=== PATIENT | female | born 2005 | race African-American/Black ===

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

== ENCOUNTER 2023-11-29 18:40 | Emergency (ER) | payer MEDICAID, SELFPAY ==
[2023-11-29 18:41] VITALS: BP 106/61; PULSE 91; RESP 14; TEMP 37.4; O2SAT 99; BMI 27.8
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
--- NOTE | 2023-11-29 19:06 | EX.ED.DYSGE1 ---
HPI History of Present Illness Chief Complaint: Cough Informant: patient and parent Narrative Narrative: Patient presents with cough and some chest discomfort. Patient is 24 weeks . She had a miscarriage at 5 weeks about a year ago. She has not had problems with this . Only medicine is multivitamin at this time. About 5 days ago she started to not feel well. It started with some myalgias. Subjective fever and diarrhea. She has not had nausea and vomiting but she states her appetite is just very down and she is just not interested in eating but she is able to eat and drink. She has had some nasal congestion and runny nose. She then developed a cough. No sputum production. She has been coughing more firmly for the last couple days. She states if she takes a big breath when she breathes out she hears a little bit of wheeze and it makes her cough. She has developed some soreness in her anterior sternum mostly with coughing. No hemoptysis. No family or personal history of DVT or PE. No leg pain or swelling. No history of asthma. No recent travel. [facility] Medical History (Updated 11/29/23 @ 21:[address] Kameron Obregon MD) Anxiety Bipolar disorder Depression Former smoker GERD (gastroesophageal reflux disease) Substance abuse Home Medications aspirin 81 mg tablet,delayed release 81 mg PO DAILY 11/29/23 [History Last Taken Unknown] vitamins no.144-folic acid 400 mcg chewable tablet () 2 tab PO DAILY 11/29/23 [History Last Taken Unknown] Allergy/AdvReac Type Severity Reaction Status Date / Time No Known Allergies Allergy Verified 11/29/23 18:41 Social History Smoking Status: Former smoker ROS ROS ED ROS Narrative A complete review of systems was performed and is negative except as documented in the history of present illness. Some specific details below. Constitutional: Subjective fevers. Not measured. Minimal myalgias. See history of present illness EYE: No eye pain or visual complaints. ENT: No sore throat. But she does have some nasal congestion and runny nose CV: See history of present illness. Respiratory: See history of present illness. GI: No abdominal pain. Diarrhea which is improving now. No nausea vomiting but her appetite is down. : No frequency dysuria or hematuria. Musculoskeletal: No recent trauma. No pains. No swelling. Skin: No rash. Nondiaphoretic. Neuro: No weakness or numbness. Endocrine: No polyuria or polydipsia. EXAM Physical Exam Narrative Exam Narrative: CONSTITUTIONAL: Patient is nontoxic in appearance. The patient looks comfortable. Work of breathing looks normal. HEENT: No notable trauma. Mucous membranes moist. Her nose a little bit red likely from blowing. Mild nasal congestion. But no sinus tenderness. No exudate. EYES: No conjunctival injection. No proptosis. NECK:No JVD. No stridor. Voice is normal. CARDIOVASCULAR: Regular rate. Not tachycardic. Regular rhythm. No notable murmur. No JVD. RESPIRATORY: No respiratory distress. Breathing is unlabored. No wheezes with normal breathing. But when she takes a deep breath she will have a little bit of wheeze with expiration. It is very mild. It will also sometimes induce a cough. But no notable pain and no sensation of inspiration with a deep breath. No rhonchi. No rales. She does have tenderness in the lower to mid sternum in the area where she has discomfort with coughing. This is reproducible. GASTROINTESTINAL: Gravid but not tender. GENITOURINARY: No tenderness over the bladder. No CVA tenderness. MUSCULOSKELETAL: Atraumatic. No peripheral edema. No asymmetry or cord. NEUROLOGICAL: Patient is alert and appropriate. No focal deficit noted. SKIN: No noted rashes. No diaphoresis. PSYCHIATRIC: Patient is calm. Mood is appropriate. Const Vital Signs: 11/29/23 18:41 11/29/23 19:15 11/29/23 20:14 Temperature 99.3 F H Temperature Source Temporal Pulse Rate 91 92 Respiratory Rate 14 14 Respiratory Effort Normal Respiratory Depth Normal Respiratory Pattern Normal Blood Pressure 106/61 Blood Pressure Mean 76 Pulse Ox 99 Oxygen Delivery Method Room Air Room Air 11/29/23 20:39 Temperature Temperature Source Pulse Rate 78 Respiratory Rate 16 Respiratory Effort Respiratory Depth Respiratory Pattern Blood Pressure 92/45 L Blood Pressure Mean 60 Pulse Ox 97 Oxygen Delivery Method Room Air MDM MDM MDM Narrative Medical decision making narrative: Patient was likely referred in here due to concern for PE from her symptoms. At this patient clearly has viral type syndrome. She started with malaise subjective fevers diarrhea progressed to runny nose congestion and a cough. I do not think it would be appropriate to do a CTA. I think that would be putting her in the child at much more risk than there is potential benefit. I will give her a breathing treatment to see if this helps with forced expiration. Because you can induce a little bit of wheezing I will check for viral studies. She does not look ill like she has a virus but she does have symptoms consistent with that. I did explain that negative viral studies does not rule out the disease it just makes it less likely. Patient is positive for flu A. I checked her with her she states the breathing treatment really did not help her. Since it did not help I do not think we need to prescribe it. She will use rest Tylenol and follow-up. We discussed expected duration and reasons to return. Discharge Plan Triage Chief Complaint: Cough ED Provider: Kameron Obregon Dx/Rx/DC Orders Clinical Impression: Influenza A Instructions: ED Influenza (Adult) Prescriptions: No Action 400 mcg tablet,chewable 2 tab PO DAILY aspirin 81 mg tablet,delayed release (DR/EC) 81 mg PO DAILY Primary Care Provider: Kristina He Referrals: Kristina He MD [Primary Care Provider] - 3-5 Days if not improving Disposition Disposition: Home, Self Care
[2023-11-29 19:15] VITALS: PULSE 92; RESP 14
[2023-11-29] MEDS: Albuterol 2.5 MG/3 ML VIAL.NEB. INHALATION (19:15)
[2023-11-29 20:14] VITALS: O2SAT 97
[2023-11-29 20:39] VITALS: BP 92/45; PULSE 78; RESP 16; O2SAT 97
[2023-11-29 21:19] VITALS: BP 98/61; PULSE 79; RESP 16; O2SAT 97
== END 2023-11-29 21:21 | disposition home or self-care (01) ==
PROVIDERS: Emergency Provider Emergency Medicine; PCP Pediatrics; Visit Provider Emergency Medicine
DX: J10.1 Influenza due to other identified influenza virus with other respiratory manifestations (principal); O99.512 Diseases of the respiratory system complicating pregnancy, second trimester; Z3A.24 24 weeks gestation of pregnancy; Z87.891 Personal history of nicotine dependence
CPT/HCPCS: 87631; 94640; 99282

== ENCOUNTER 2024-02-11 19:05 | Outpatient (CLI) | payer MEDICAID, SELFPAY ==
[2024-02-11 19:35] VITALS: BMI 29.2
[2024-02-11 19:41] VITALS: BP 111/67; PULSE 93; RESP 16; TEMP 36.8; O2SAT 97
[2024-02-11] MEDS: Lactated Ringers 500 ML IV.SOLN. 1000 ML IV (20:10)
[2024-02-11 20:25] LABS: Absolute Lymphocyte Count 1.72 X10^3/uL (0.83-4.51); Basophil# 0.04 X10^3/uL; Basophil% 0.5 % (0-1); Eosinophil# 0.11 X10^3/uL; Eosinophils% 1.2 % (0-5); Hemoglobin 10.5 g/dL (12.0-15.0); Lymphocyte # 1.72 X10^3/ul (0.83-4.51); Lymphocyte % 19.5 % (19-41); Mean Corp Hgb Conc 33.9 g/dL (32-36); Mean Corpuscular Hgb 30.2 pg (27.0-32.0); Mean Corpuscular Volume 89.1 fL (81-99); Mean Platelet Vol. 10.3 fl (6.2-12.0); Monocyte% 10.2 % (0-10); NRBC Flagged by Analyzer 0 % (0-5); Neutrophil # 6.01 X10^3/uL (2.7-7.7); Neutrophil % 67.9 % (47-70); Platelet Count 239 K/mm3 (150-450); RBC Distribution Width CV 12.7 % (11.6-14.6); Red Blood Count 3.48 M/mm3 (4.2-5.4); White Blood Count 8.8 K/mm3 (4.4-11.0)
[2024-02-11 20:47] LABS: Prothrombin Time (Protime)PT. 13.6 SECONDS (11.7-14.9)
[2024-02-11 20:48] LABS: Fibrinogen 426 mg/dl (203-444); Partial Thromboplast Time 25.5 Seconds (24.1-36.2)
[2024-02-11] MEDS: Lactated Ringers 500 ML IV.SOLN. IV (22:11)
[2024-02-11 22:12] VITALS: PULSE 99; RESP 16; TEMP 36.6; O2SAT 97
[2024-02-11 22:13] VITALS: BP 116/56; PULSE 86
[2024-02-11 22:56] VITALS: BP 110/56; PULSE 80; PULSE 81; RESP 16; TEMP 36.6; O2SAT 98
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
== END 2024-02-11 23:25 | disposition home or self-care (01) ==
LOC: WPOUT 19:08 → WP 19:10
PROVIDERS: PCP Pediatrics; Referring Provider Obstetrics & Gynecology; Visit Provider Obstetrics & Gynecology
DX: O47.03 False labor before 37 completed weeks of gestation, third trimester (principal); O99.613 Diseases of the digestive system complicating pregnancy, third trimester; K21.9 Gastro-esophageal reflux disease without esophagitis; Z3A.37 37 weeks gestation of pregnancy; Z79.899 Other long term (current) drug therapy; V18.9XXA Unspecified pedal cyclist injured in noncollision transport accident in traffic accident, initial encounter
CPT/HCPCS: 36415; 59025; 59050; 76815; 85025; 85384; 85610; 85730; 86850; 86900; 86901; 99221; J7120; G0378

== ENCOUNTER 2024-03-18 08:21 | Inpatient (IN) | payer MEDICAID, SELFPAY ==
[2024-03-18] VITALS (97 sets, daily range): BP systolic 89–129; BP diastolic 40–81; PULSE 60–103; RESP 16–24; TEMP 35.9–36.6; O2SAT 91–100; BMI 30.2
[2024-03-18] MEDS: Lactated Ringers 1,000 ML 999 ML IV (09:05)
[2024-03-18 09:17] LABS: Amphetamine Urine VISTA NEGATIVE (<1000 ng/mL); Barbiturate Urine VISTA NEGATIVE (< 200 ng/mL); Benzodiazepine Urine VISTA NEGATIVE (< 200 ng/mL); Cocaine Urine VISTA NEGATIVE (< 300 ng/mL); Ecstacy Urine VISTA NEGATIVE (< 500 ng/mL); Methadone Urine VISTA NEGATIVE (< 300 ng/mL); PCP Urine VISTA NEGATIVE (< 25 ng/mL); THC Urine VISTA NEGATIVE (< 50 ng/mL); Vista UDS pH Range 7
[2024-03-18 09:28] LABS: ROM Internal Control Test YES-OK TO RESULT pt. (Internal QC); ROM Patient Test Negative (Negative); Record Kit Lot#, ROM+ K1866
[2024-03-18] MEDS: LACTATED RINGERS 500 ML 999 ML IV (09:30)
[2024-03-18 09:31] LABS: Absolute Lymphocyte Count 1.05 X10^3/uL (0.83-4.51); Absolute Neutrophil Count 9.6 X10^3/uL (2.0-7.7); Basophil# 0.03 X10^3/uL; Basophil% 0.3 % (0-1); Eosinophil# 0.04 X10^3/uL; Eosinophils% 0.3 % (0-5); Hematocrit 37.8 % (37-47); Hemoglobin 12.8 g/dL (12.0-15.0); Lymphocyte # 1.05 X10^3/ul (0.83-4.51); Lymphocyte % 9.1 % (19-41); Mean Corp Hgb Conc 33.9 g/dL (32-36); Mean Corpuscular Hgb 30.2 pg (27.0-32.0); Mean Corpuscular Volume 89.2 fL (81-99); Mean Platelet Vol. 10.6 fl (6.2-12.0); Monocyte# 0.84 X10^3/uL; Monocyte% 7.3 % (0-10); NRBC Flagged by Analyzer 0 % (0-5); Neutrophil # 9.56 X10^3/uL (2.7-7.7); Neutrophil % 82.7 % (47-70); Platelet Count 220 K/mm3 (150-450); RBC Distribution Width CV 13.4 % (11.6-14.6); RBC Distribution Width SD 43.8 fl (35.1-43.9); Red Blood Count 4.24 M/mm3 (4.2-5.4); White Blood Count 11.6 K/mm3 (4.4-11.0)
[2024-03-18] MEDS: Penicillin G Pot 5,000,000 UNITS in 0.9% Normal Saline (100mL MB+) 100 ML 150 UNITS IV (09:53)
[2024-03-18] MEDS: fentaNYL-bupivacaine (epidural) 100 ML BAG EPIDURAL ×2 (10:03→14:33)
[2024-03-18] MEDS: Famotidine 20 MG Tablet PO (10:33)
[2024-03-18 11:53] LABS: Syphilis Antibodies Non-reactive
--- NOTE | 2024-03-18 12:21 | HP.PCM.OB_ITS ---
HPI - General General Date of Admission: 03/18/24 Date of Service: 03/18/24 Chief Complaint: contractions HPI Narrative BRIONNA ROBERTS, is a 18 F who presents 2 para 0 at 39-5/7 weeks gestation with complaint of contractions. Found to be in labor. is complicated to date by marijuana use, vaping of nicotine, mood disorder. She is found to be group B strep positive during the . Maternal Data Information Final TERE: 03/20/24 Gestational age: 39 5/7 PFSH PFSH Medical History PTSD (post-traumatic stress disorder) Substance abuse Anxiety Depression Bipolar disorder GERD (gastroesophageal reflux disease) Former smoker Home Medications ?Medication ?Instructions ?Recorded ?Last Taken ?Type aspirin 81 mg tablet,delayed 81 mg PO DAILY 11/29/23 02/04/24 History release vitamins no.144-folic 2 tab PO DAILY 11/29/23 03/18/24 02:00 History acid 400 mcg chewable tablet () famotidine 20 mg tablet (Heartburn 20 mg PO DAILY 02/11/24 03/17/24 20:00 H istory Prevention) acetaminophen 500 mg tablet 1,000 mg PO Q6H PRN pain 03/18/24 03/18/24 00:00 History Allergy/AdvReac Type Severity Reaction Status Date / Time No Known Allergies Allergy Verified 03/18/24 02:42 Social History Smoking Status: Current every day smoker tobacco type: e-cigarettes History Elective abortions Hx Para 0 Spontaneous abortions Hx # Term Pregnancies Ectopic pregnancies Hx # Pregnancies Multiple births # of living children ROS Constitutional Constitutional: Denies fatigue, fever(s) or malaise Eyes Eyes: Denies change in vision ENT HEENT: Denies dizziness or headache(s) Cardiovascular Cardiovascular: Denies chest pain, dyspnea or lightheadedness Respiratory/Chest Respiratory/Chest: Denies cough or dyspnea Gastrointestinal Gastrointestinal: Denies change in bowel habits Genitourinary Genitourinary: Denies burning urination or genital lesions Integumentary Integumentary: Denies rash Neurologic Neurologic: Denies confusion, dizziness, headache(s), numbness or weakness Vital Signs Vital Signs Vital Signs: 03/18/24 02:38 03/18/24 02:38 03/18/24 02:38 Temperature Temperature Source Temporal Pulse Rate 80 Respiratory Rate 24 H Blood Pressure BP Systolic BP Diastolic Pulse Ox 03/18/24 02:38 03/18/24 02:38 03/18/24 02:50 Temperature 97.2 F L Temperature Source Pulse Rate Respiratory Rate Blood Pressure 120/81 H BP Systolic 120 BP Diastolic 81 Pulse Ox 98 03/18/24 02:50 03/18/24 03:39 03/18/24 03:39 Temperature Temperature Source Pulse Rate 72 62 Respiratory Rate Blood Pressure BP Systolic BP Diastolic Pulse Ox 98 03/18/24 03:50 03/18/24 03:50 03/18/24 03:55 Temperature Temperature Source Pulse Rate 98 75 Respiratory Rate Blood Pressure BP Systolic BP Diastolic Pulse Ox 98 03/18/24 03:55 03/18/24 04:00 03/18/24 04:00 Temperature Temperature Source Pulse Rate 74 Respiratory Rate Blood Pressure BP Systolic BP Diastolic Pulse Ox 98 98 03/18/24 04:05 03/18/24 04:05 03/18/24 04:10 Temperature Temperature Source Pulse Rate 63 61 Respiratory Rate Blood Pressure BP Systolic BP Diastolic Pulse Ox 98 03/18/24 04:10 03/18/24 04:15 03/18/24 04:15 Temperature Temperature Source Pulse Rate 60 Respiratory Rate Blood Pressure BP Systolic BP Diastolic Pulse Ox 98 98 03/18/24 04:20 03/18/24 04:20 03/18/24 04:25 Temperature Temperature Source Pulse Rate 66 69 Respiratory Rate Blood Pressure BP Systolic BP Diastolic Pulse Ox 99 03/18/24 04:25 03/18/24 04:30 03/18/24 04:30 Temperature Temperature Source Pulse Rate 66 Respiratory Rate Blood Pressure BP Systolic BP Diastolic Pulse Ox 98 98 03/18/24 04:35 03/18/24 04:35 03/18/24 04:40 Temperature Temperature Source Pulse Rate 71 61 Respiratory Rate Blood Pressure BP Systolic BP Diastolic Pulse Ox 98 03/18/24 04:40 03/18/24 04:45 03/18/24 04:45 Temperature Temperature Source Pulse Rate 68 Respiratory Rate Blood Pressure BP Systolic BP Diastolic Pulse Ox 98 98 03/18/24 04:50 03/18/24 04:50 03/18/24 04:53 Temperature Temperature Source Pulse Rate 62 61 Respiratory Rate Blood Pressure BP Systolic BP Diastolic Pulse Ox 98 03/18/24 04:53 03/18/24 04:53 03/18/24 04:53 Temperature Temperature Source Pulse Rate Respiratory Rate Blood Pressure BP Systolic BP Diastolic Pulse Ox 91 99 99 03/18/24 05:40 03/18/24 05:40 03/18/24 05:45 Temperature Temperature Source Pulse Rate 74 78 Respiratory Rate Blood Pressure BP Systolic BP Diastolic Pulse Ox 98 03/18/24 05:45 03/18/24 05:50 03/18/24 05:50 Temperature Temperature Source Pulse Rate 64 Respiratory Rate Blood Pressure BP Systolic BP Diastolic Pulse Ox 98 98 03/18/24 05:55 03/18/24 05:55 03/18/24 06:00 Temperature Temperature Source Pulse Rate 76 73 Respiratory Rate Blood Pressure BP Systolic BP Diastolic Pulse Ox 97 03/18/24 06:00 03/18/24 06:00 03/18/24 06:00 Temperature Temperature Source Pulse Rate 63 Respiratory Rate Blood Pressure BP Systolic BP Diastolic Pulse Ox 92 98 03/18/24 06:05 03/18/24 06:05 03/18/24 06:10 Temperature Temperature Source Pulse Rate 62 70 Respiratory Rate Blood Pressure BP Systolic BP Diastolic Pulse Ox 97 03/18/24 06:10 03/18/24 06:15 03/18/24 06:15 Temperature Temperature Source Pulse Rate 65 Respiratory Rate Blood Pressure BP Systolic BP Diastolic Pulse Ox 98 98 03/18/24 06:20 03/18/24 06:20 03/18/24 06:25 Temperature Temperature Source Pulse Rate 103 H 73 Respiratory Rate Blood Pressure BP Systolic BP Diastolic Pulse Ox 99 03/18/24 06:25 03/18/24 06:29 03/18/24 06:29 Temperature Temperature Source Temporal Pulse Rate Respiratory Rate 24 H Blood Pressure BP Systolic BP Diastolic Pulse Ox 98 03/18/24 06:29 03/18/24 06:31 03/18/24 06:31 Temperature 97.5 F L Temperature Source Pulse Rate 78 Respiratory Rate Blood Pressure BP Systolic BP Diastolic Pulse Ox 98 03/18/24 06:36 03/18/24 06:36 03/18/24 06:41 Temperature Temperature Source Pulse Rate 72 71 Respiratory Rate Blood Pressure BP Systolic BP Diastolic Pulse Ox 98 03/18/24 06:41 03/18/24 07:02 03/18/24 07:02 Temperature Temperature Source Pulse Rate 70 Respiratory Rate Blood Pressure BP Systolic BP Diastolic Pulse Ox 98 98 03/18/24 07:07 03/18/24 07:07 03/18/24 07:12 Temperature Temperature Source Pulse Rate 86 65 Respiratory Rate Blood Pressure BP Systolic BP Diastolic Pulse Ox 98 03/18/24 07:12 03/18/24 07:17 03/18/24 07:17 Temperature Temperature Source Pulse Rate 74 Respiratory Rate Blood Pressure BP Systolic BP Diastolic Pulse Ox 97 99 03/18/24 07:22 03/18/24 07:22 03/18/24 07:52 Temperature Temperature Source Pulse Rate 74 79 Respiratory Rate Blood Pressure BP Systolic BP Diastolic Pulse Ox 99 03/18/24 07:52 03/18/24 07:53 03/18/24 07:53 Temperature Temperature Source Pulse Rate 74 Respiratory Rate Blood Pressure 127/80 H BP Systolic 127 BP Diastolic 80 Pulse Ox 100 03/18/24 07:53 03/18/24 07:53 03/18/24 07:57 Temperature 97.0 F L Temperature Source Temporal Pulse Rate 72 Respiratory Rate Blood Pressure BP Systolic BP Diastolic Pulse Ox 03/18/24 07:57 03/18/24 08:02 03/18/24 08:02 Temperature Temperature Source Pulse Rate 83 Respiratory Rate Blood Pressure BP Systolic BP Diastolic Pulse Ox 97 99 03/18/24 08:07 03/18/24 08:07 03/18/24 08:12 Temperature Temperature Source Pulse Rate 72 66 Respiratory Rate Blood Pressure BP Systolic BP Diastolic Pulse Ox 100 03/18/24 08:12 03/18/24 08:17 03/18/24 08:17 Temperature Temperature Source Pulse Rate 78 Respiratory Rate Blood Pressure BP Systolic BP Diastolic Pulse Ox 99 100 03/18/24 08:22 03/18/24 08:22 03/18/24 08:26 Temperature Temperature Source Pulse Rate 75 68 Respiratory Rate Blood Pressure BP Systolic BP Diastolic Pulse Ox 100 03/18/24 08:26 03/18/24 08:27 03/18/24 08:27 Temperature Temperature Source Pulse Rate 74 Respiratory Rate Blood Pressure BP Systolic BP Diastolic Pulse Ox 92 98 03/18/24 09:53 03/18/24 09:53 03/18/24 09:53 Temperature Temperature Source Pulse Rate 82 Respiratory Rate Blood Pressure 129/72 H BP Systolic 129 BP Diastolic 72 Pulse Ox 100 03/18/24 09:58 03/18/24 09:58 03/18/24 10:00 Temperature Temperature Source Pulse Rate 85 79 Respiratory Rate Blood Pressure 121/63 H BP Systolic 121 BP Diastolic 63 Pulse Ox 03/18/24 10:00 03/18/24 10:00 03/18/24 10:00 Temperature Temperature Source Temporal Pulse Rate Respiratory Rate 16 Blood Pressure BP Systolic BP Diastolic Pulse Ox 97 03/18/24 10:00 03/18/24 10:03 03/18/24 10:03 Temperature 97.1 F L Temperature Source Pulse Rate 74 Respiratory Rate Blood Pressure 129/57 H BP Systolic 129 BP Diastolic 57 Pulse Ox 03/18/24 10:05 03/18/24 10:05 03/18/24 10:08 Temperature Temperature Source Pulse Rate 78 Respiratory Rate Blood Pressure 113/57 L BP Systolic 113 BP Diastolic 57 Pulse Ox 98 03/18/24 10:08 03/18/24 10:08 03/18/24 10:10 Temperature Temperature Source Pulse Rate 81 81 Respiratory Rate 16 Blood Pressure BP Systolic BP Diastolic Pulse Ox 03/18/24 10:10 03/18/24 10:12 03/18/24 10:12 Temperature Temperature Source Pulse Rate 81 Respiratory Rate Blood Pressure 111/59 L BP Systolic 111 BP Diastolic 59 Pulse Ox 97 03/18/24 10:13 03/18/24 10:15 03/18/24 10:15 Temperature Temperature Source Pulse Rate 82 Respiratory Rate 16 Blood Pressure BP Systolic BP Diastolic Pulse Ox 98 03/18/24 10:17 03/18/24 10:18 03/18/24 10:20 Temperature Temperature Source Pulse Rate 78 Respiratory Rate 16 Blood Pressure 113/59 L BP Systolic 113 BP Diastolic 59 Pulse Ox 03/18/24 10:20 03/18/24 10:22 03/18/24 10:22 Temperature Temperature Source Pulse Rate 75 Respiratory Rate Blood Pressure 121/66 H BP Systolic 121 BP Diastolic 66 Pulse Ox 98 03/18/24 10:23 03/18/24 10:25 03/18/24 10:25 Temperature Temperature Source Pulse Rate 77 Respiratory Rate 16 Blood Pressure BP Systolic BP Diastolic Pulse Ox 97 03/18/24 10:27 03/18/24 10:27 03/18/24 10:29 Temperature Temperature Source Pulse Rate 90 Respiratory Rate 16 Blood Pressure 112/59 L BP Systolic 112 BP Diastolic 59 Pulse Ox 03/18/24 10:30 03/18/24 10:30 03/18/24 10:32 Temperature Temperature Source Pulse Rate 75 Respiratory Rate Blood Pressure 118/64 BP Systolic 118 BP Diastolic 64 Pulse Ox 99 03/18/24 10:32 03/18/24 10:35 03/18/24 10:35 Temperature Temperature Source Pulse Rate 80 74 Respiratory Rate Blood Pressure BP Systolic BP Diastolic Pulse Ox 99 03/18/24 10:37 03/18/24 10:37 03/18/24 10:40 Temperature Temperature Source Pulse Rate 83 84 Respiratory Rate Blood Pressure 112/66 BP Systolic 112 BP Diastolic 66 Pulse Ox 03/18/24 10:40 03/18/24 10:42 03/18/24 10:42 Temperature Temperature Source Pulse Rate 78 Respiratory Rate Blood Pressure 106/62 BP Systolic 106 BP Diastolic 62 Pulse Ox 98 03/18/24 10:45 03/18/24 10:45 03/18/24 10:47 Temperature Temperature Source Pulse Rate 85 Respiratory Rate Blood Pressure 105/57 L BP Systolic 105 BP Diastolic 57 Pulse Ox 99 03/18/24 10:47 03/18/24 10:50 03/18/24 10:50 Temperature Temperature Source Pulse Rate 78 89 Respiratory Rate Blood Pressure BP Systolic BP Diastolic Pulse Ox 99 03/18/24 10:52 03/18/24 10:52 03/18/24 10:55 Temperature Temperature Source Pulse Rate 93 83 Respiratory Rate Blood Pressure 108/62 BP Systolic 108 BP Diastolic 62 Pulse Ox 03/18/24 10:55 03/18/24 11:11 03/18/24 11:11 Temperature Temperature Source Pulse Rate 93 Respiratory Rate Blood Pressure 122/68 H BP Systolic 122 BP Diastolic 68 Pulse Ox 98 03/18/24 11:30 03/18/24 11:30 03/18/24 11:30 Temperature 96.7 F L Temperature Source Temporal Pulse Rate Respiratory Rate 16 Blood Pressure BP Systolic BP Diastolic Pulse Ox 03/18/24 11:38 03/18/24 11:38 03/18/24 11:53 Temperature Temperature Source Pulse Rate 76 Respiratory Rate Blood Pressure 118/81 H 108/63 BP Systolic 118 108 BP Diastolic 81 63 Pulse Ox 03/18/24 11:53 03/18/24 12:08 03/18/24 12:08 Temperature Temperature Source Pulse Rate 67 70 Respiratory Rate Blood Pressure 104/59 L BP Systolic 104 BP Diastolic 59 Pulse Ox Weight Weight: 82.463 kg Body Mass Index (BMI) 30.2 Physical Exam Const alert and no apparent distress General Appearance: cooperative HEENT normocephalic Resp normal respiratory effort Cardio regular rate GI soft to palpation GI Narrative: gravid, nontender, appropriate for gestational age Extremity no calf tenderness General Extremity: edema Skin no wounds Rashes: No rashes noted Psych activity/motor behavior normal Labs Labs Labs: Blood Type A POSITIVE Antibody Screen NEGATIVE Hct 37.8 % (37-47) Hgb 12.8 g/dL (12.0-15.0) Syphilis Total Ab Non-reactive Assessment & Plan (1) 39 weeks gestation of : PLAN: Spontaneous labor at term. Estimated weight is less than 4500 g clinically and pelvis clinically adequate to expect vaginal delivery. Pitocin augmentation if needed. May have routine pain control measures as desired and as indicated during labor. Group B strep prophylaxis initiated. (2) Spontaneous onset of labor:
--- NOTE | 2024-03-18 14:59 | PLAC_PTH ---
PATIENT: BRIONNA TSAI LOC: [facility] U#:[id number] AGE/SX: 18/F ROOM: WP007 RE03/18/[address]: Dr. Poppy Goodrich MD : 2005 BED: 1 DIS: 03/19/2024 SPEC #: [id number] RECD: 03/18/24 19:27 STATUS: SHLOMO SULLIVAN #: [id number] AISLINN: 03/18/24 14:[address]: Poppy Goodrich DEPT: SURGICAL PATHOLOGY RECD BY: Alyssa Calvillo ENTERED: 03/19/24 07:09 SP TYPE: PLACENTA OTHR DR: PEGGY Bang Dr., MD Tissues: Placenta, NOS Procedures: Surgery Specimen Level V HEADER OPERATION: section PRE-OP DIAGNOSIS: Category 2 BELLE alexander TISSUE SUBMITTED: Placenta MICROSCOPIC DIAGNOSIS Morales placenta (524 gm): Umbilical cord - Trivascular with acute funisitis Placental membranes - Acute chorioamnionitis and acute deciduitis Placental disc - Acute vasculitis of superficial placental vessels, Rolanda-Cecilio change, Intravillous congestion and mildly increased intraparenchymal microcalcifications AM: 03/24/2024 MICROSCOPIC DESCRIPTION Slides are reviewed. GROSS DESCRIPTION SPECIMEN: PLACENTA / CLINICAL INFORMATION: A. Weight: 3.35 kg B. Gestational Age: 39 weeks C. Sex: Male PLACENTAL WEIGHT (POST FIXATION): 524 gm PLACENTAL DIMENSIONS: 18.0 x 16.0 x 3.5 cm PLACENTAL SHAPE: Usual ovoid PLACENTAL WEIGHT FOR GESTATIONAL AGE: Within 10-99th percentile MEMBRANES - Present A. Insertion: Marginal B. Site of rupture from edge: 3.0 cm from edge of placental disc C. Color of membrane: Hamm-pinedo D. Abnormalities: None UMBILICAL CORD - Present A. Color: Hamm-pinedo B. Insertion: Eccentric C. Length: 48.0 cm D. Diameter: 1.4 cm E. Number of vessels: Three F. Abnormalities: None PLACENTAL DISC - Present A. Color of surface: Hamm-pinedo B. surface abnormalities: None C. Maternal cotyledons: Intact with minimal tears D. Attached retro placental clot: No clot E. Cut surface: Dark red and spongy F. Lesions: None G. Separate clot: Absent SECTIONS SUBMITTED: Dr. Zafar 1. Umbilical cord ( end notched) 2. Umbilical cord, placental end 3. Membrane roll 4. Placental disc, and maternal surfaces 5. Placental disc, and maternal surfaces 6. Placental disc, and maternal surfaces AM/mr 03/20/2024 TC:2 CPT: 44622
[2024-03-18] MEDS: Ondansetron 4 MG/2 ML Vial IV (15:08)
[2024-03-18] MEDS: Cefazolin 2 GM in 0.9% Normal Saline (100mL Bag) 100 ML IV (15:12)
[2024-03-18] MEDS: Azithromycin 500 MG in Dextrose 5%-Water (250mL Bag) 250 ML 250 MG IV (15:17)
--- NOTE | 2024-03-18 15:43 | CASEMGMT ---
Labor and Delivery Acls Nurse BELLE initiated due to heart decelerations. Sw presented to BELLE and provided support to patient's sister. Sw provided support and answered questions patient's sister asked as able. Sister expressed thankfulness and was then able to be with patient. Humphrey Dubon, HYBRID CORN BREEDER, REPAIR ARMATURE WINDER HELPER
[2024-03-18] MEDS: Oxytocin 15 Units/NS 250ml 15 UNITS/250 ML IV.SOLN 83 UNITS IV (16:15)
[2024-03-18] MEDS: Ketorolac 30 MG/ML Syringe IV ×2 (16:38→22:18)
[2024-03-18] MEDS: Acetaminophen 500 MG Tablet 1000 MG PO (18:41)
--- NOTE | 2024-03-18 18:54 | EX.PCM.OBRPT ---
Assessment & Plan (1) Single delivery by : (2) Non-reassuring heart tones, delivered, current hospitalization: Maternal Data Information Final TERE: 03/20/24 Gestational age: 39+5 Details Operative Information Date of Procedure: 03/18/24 Pre-Operative Diagnosis: NRFHR Post-Operative Diagnosis: Same Indications for : Distress Indications Narrative: Admitted in spontaneous labor. PCN given for GBS positive. Progressed to 7 cm and AROM at 1213 with light meconium noted. No Pitocin augmentation. At 1337 sudden broken decel for approximately 7-8 minutes. Moved to OR where FHR was found to be 130s. FSE was placed. FHR remained in 120-130s without additional decels. Moderated variability and accels. Patient voiced the desire to not have a if able. FHR monitored for 30 minutes in the OR and was reassuring the entire time. She was then moved back to her labor room. In the labor room FHR once again started to have decels. Cervical exam was found to be 7 cm and IUPC was placed. Patient was repositioned to her left side but HR did not recover. She was immediately moved to the OR where an emergent was performed. Classification: Stat Procedure Type: low transverse small arms repairer #1: Danica Parker Type of Anesthesia: Epidural (ketamine added) Anesthesiologist: Ann Schilling Antibiotic Given: Ancef 2 grams IV x1 and Zithromax 500 mg/5 mL X1 Drain: Armenta to straight drain Estimated Blood Loss: 500 cc Procedure Start Time: 14:58 Procedure Stop Time: 15:34 Time of Delivery: 14:59 Findings Description of Procedure: Epidural was in place when patient was moved to the OR. She was placed in a dorsal supine position with a leftward tilt. Betadine was splashed on her abdomen and the drape was placed. Anesthesia however was not adequate. Ketamine was administered and then a Pfannenstiel incision was made with the scalpel and carried down to the fascia. The fascia was incised and extended laterally the muscles were divided and the peritoneum entered bluntly. A bladder blade was placed. A low transverse incision was made in the uterus and extended bluntly. The head was elevated to the incision but then turned transverse. Pressure on the fundus was released and the head once again brought to the incision and delivered without difficulty. The rest of the body was then delivered. There was no CAN. Meconium stained fluid but no excess blood. The cord was clamped and cut and the handed to the nurses. The placenta was delivered by expression. The placenta was intact and there were no clots on the placenta but it did appear aged. The uterus was exteriorized and cleared of all clot and debris. The incision was closed with 1-0 Vicryl in a running locked fashion x 2. A single figure of eight was used for hemostasis. The uterus was returned to the abdomen. The gutters were cleared of clots. The peritoneum was closed with 3-0 Monocryl. The fascia was closed with 1-0 Vicryl. The subq was reapproximated with Monocryl and the skin closed with vicryl. All sponge lap and need counts were correct Presentation: Positive for Vertex Amniotic Membrane Rupture Type: Artificial Time of Membrane Ruptured: 1213 Amniotic Fluid Description: Lightly stained meconium Placental Delivery Description: Expressed Placenta Disposition: [facility] Specimen(s) Sent to Pathology: placenta Cord Vessel Description: 3 Vessels Cord Entanglement: None Cord Gases: ABG (7.14) Infant A Gender: Male (1 minute): 1 (5 minute): 5 (10 minute 8) Delayed Cord Clamping: No
[2024-03-18] MEDS: Lactated Ringers 1,000 ML 100 ML IV (18:57)
--- NOTE | 2024-03-18 19:48 | NURSING ---
Provider Shawn on unit and this RN informing provider about patients urine output after recovery of 100ml/hr. Patient has toradol due at 2200 and indications of that medication being held are a urine output of 120ml in 4 hours. I asked provider if she was interested in doing a fluid bolus for patient to increase output, but a 1,000ml bag of Lactated Ringers is infusing at this time and patient is having dinner. Provider states to allow the fluid to keep running and to not do a fluid bolus at this time. This RN to continue current plan of care at this time.
[2024-03-18 22:02] LABS: Pathology Specimen OB SEE PATHOLOGY REPORT
[2024-03-18] MEDS: Cefazolin 1 GM/50 ML BAG IV (22:18)
[2024-03-19] MEDS: Acetaminophen 500 MG Tablet 1000 MG PO ×3 (00:18→12:38)
[2024-03-19 00:20] VITALS: BP 99/55; PULSE 66; RESP 16; TEMP 36.4; O2SAT 99
[2024-03-19] MEDS: SimETHICONE 80 MG Chewable Tablet PO (00:40)
[2024-03-19 02:57] VITALS: PULSE 59; RESP 16; O2SAT 98
[2024-03-19 04:16] VITALS: BP 102/62; PULSE 71; RESP 16; TEMP 36.2; O2SAT 100
[2024-03-19] MEDS: Ketorolac 30 MG/ML Syringe IV ×2 (04:21→10:47)
[2024-03-19 04:45] LABS: Hemoglobin 10.1 g/dL (12.0-15.0); Mean Corp Hgb Conc 33.7 g/dL (32-36); Mean Corpuscular Hgb 30.7 pg (27.0-32.0); Mean Corpuscular Volume 91.2 fL (81-99); Mean Platelet Vol. 10.7 fl (6.2-12.0); Platelet Count 184 K/mm3 (150-450); RBC Distribution Width CV 13.5 % (11.6-14.6); RBC Distribution Width SD 45.1 fl (35.1-43.9); Red Blood Count 3.29 M/mm3 (4.2-5.4); White Blood Count 13.9 K/mm3 (4.4-11.0)
[2024-03-19] MEDS: Cefazolin 1 GM/50 ML BAG IV ×2 (06:06→13:54)
[2024-03-19] MEDS: Etonogestrel 68 MG IMPLANT SC (07:07)
[2024-03-19] MEDS: Lidocaine 1% (20 ml mdv) 20 ML Vial INFILT (07:18)
--- NOTE | 2024-03-19 07:29 | PCM.OP.PRO ---
Procedure Report Date of Procedure: 03/19/24 Insertion of Nexplanon contraception device Patient requests placement of Nexplanon for contraception Consent signed Device placed in left arm Area cleansed with alcohol and 1.5 cc of 1% lidocaine injected. Site prepped with Betadine. Nexplanon inserted without difficulty Steri strip placed and band aid covering steri. Patient tolerated procedure Assessment & Plan Assessment/Plan (1) Nexplanon insertion: (2) Contraception management: QUALIFIERS: Contraceptive type: implantable subdermal Contraceptive encounter type: initial prescription Qualified Code(s): Z30.017 - Encounter for initial prescription of implantable subdermal contraceptive (3) Single delivery by : PLAN: Plan Patient given Nexplanon card
--- NOTE | 2024-03-19 07:40 | PCM.PN.OB ---
Subjective Subjective Feeling good. Minimal bleeding. ambulating well. Eating well. Voiding without difficulty. Insists on leaving at 24 hours to join her baby at the NICU in [place]. Nexplanon desired for control. Placed in left arm. Planning to breast feeding. Has been pumping and collecting colostrum Objective Data Objective Data Vital Signs: Vital Signs Temp Pulse Resp BP Pulse Ox O2 Del Method 97.1 F L 71 16 102/62 100 Room Air 03/19/24 04:16 03/19/24 04:16 03/19/24 04:16 03/19/24 04:16 03/19/24 04:16 03/19/24 04:16 Oxygen Delivery Method Room Air Weight: 82.463 kg Body Mass Index (BMI) 30.2 Intake & Output: Intake and Output for Last 24 Hours 03/17/24 03/18/24 03/19/24 23:59 23:59 23:59 Intake Total 2241.00 / 2241.00 1050 / 1050 Output Total 600 / 600 200 / 200 Balance 1641.00 / 1641.00 850 / 850 Lab / Micro Data 03/19/24 04:30 Labs: Laboratory Results - last 24 hr 03/18/24 08:00: Vag Amniotic Fld Detect Negative, Urine Opiates Screen NEGATIVE, Urine Methadone Screen NEGATIVE, Ur Barbiturates Screen NEGATIVE, Ur Phencyclidine Scrn NEGATIVE, Ur Amphetamines Screen NEGATIVE, MDMA (Ecstasy) Screen NEGATIVE, U Benzodiazepines Scrn NEGATIVE, Urine Cocaine Screen NEGATIVE, U Cannabinoids Screen NEGATIVE, Ur Drug Screen Comment 03/18/24 09:05: WBC 11.6 H, RBC 4.24, Hgb 12.8, Hct 37.8, MCV 89.2, MCH 30.2, MCHC 33.9, RDW Std Deviation 43.8, RDW Coeff of Miles 13.4, Plt Count 220, MPV 10.6, Immature Gran % (Auto) 0.300, Neut % (Auto) 82.7 H, Lymph % (Auto) 9.1 L, Moca % (Auto) 7.3, Eos % (Auto) 0.3, Baso % (Auto) 0.3, Absolute Neuts (auto) 9.6 H, Absolute Lymphs (auto) 1.05, Nucleated RBC % 0, Syphilis Total Ab Non-reactive, Blood Type A POSITIVE, Antibody Screen NEGATIVE 03/19/24 04:30: WBC 13.9 H, RBC 3.29 L, Hgb 10.1 L, Hct 30.0 L, MCV 91.2, MCH 30.7, MCHC 33.7, RDW Std Deviation 45.1 H, RDW Coeff of Miles 13.5, Plt Count 184, MPV 10.7 Physical Exam Const alert General Appearance: cooperative GI GI Narrative: soft, moderate distention, fundus firm, appropriately tender. Abdominal bandage clean dry and intact Assessment & Plan (1) Single delivery by : PLAN: Plan for discharge at 24 hours (2) Nexplanon insertion:
[2024-03-19 07:55] VITALS: BP 98/52; PULSE 66; RESP 16; TEMP 36.2; O2SAT 99
[2024-03-19] MEDS: Senna/Docusate Sodium 1 Tablet PO (10:47)
[2024-03-19] MEDS: 0.9% Saline Lock 10 ML Syringe IV ×2 (10:48→13:54)
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
[2024-03-19 13:00] VITALS: BP 105/54; PULSE 84; RESP 16; TEMP 36.6; O2SAT 98
--- NOTE | 2024-03-20 15:01 | CASEMGMT ---
Labor and Delivery Tire Recapper Sw followed up with [facility] who has decided to screen in referral made due to concerns of maternal substance use during . An drafting layout worker will be assigned to the case and will be following up with mother of baby (MOB- Dana) when discharged to home. No other needs or concerns at this time. Humphrey Dubon, LIBRARY ACQUISITIONS TECHNICIAN, ALCOHOL RUBBER
--- NOTE | 2024-03-24 11:35 | NURSING ---
Follow up phone call made. Patient states she is doing well, denies any pain or discomfort. States her incision is doing well, and her bleeding is minimal. Pumping and bottle feeding expressed breastmilk. Infant is taking 2-2.5 ounces every 2-3 hours. Denies any questions or concerns at this time.
--- NOTE | 2024-05-04 07:19 | PCM.DC.SUM ---
Providers Date of Admission: 03/18/24 Date of Discharge: 03/19/24 Primary Care Physician: Dr. Kristina He MD Reason For Visit: PRIMARY Diagnosis Discharge Diagnosis (1) Single delivery by : Status: Acute Code(s): O82 - Encounter for delivery without indication Plan: Plan for discharge at 24 hours (2) Nexplanon insertion: Status: Acute Code(s): Z30.017 - Encounter for initial prescription of implantable subdermal contraceptive Medications at Discharge Home Medications vitamins no.144-folic acid 400 mcg chewable tablet () 2 tab PO DAILY 11/29/23 famotidine 20 mg tablet (Heartburn Prevention) 20 mg PO DAILY 02/11/24 acetaminophen 500 mg tablet 1,000 mg PO Q6H PRN pain 03/18/24 ibuprofen 600 mg tablet 600 mg PO Q6H 10 days #40 tabs 03/19/24 Hospital Course Operations section Procedures - (nextplanon) Summary of Care Provided Minutes Spent on Discharge: 10 Hospital Course: Primary for distress. Uncomplicated . Nexplanon placed . Discharge at 24 hours Weight / BMI Weight Weight: 82.463 kg Body Mass Index (BMI) 30.2 ABG / Lab / Microbiology Data 03/19/24 04:30 D/C Instructions Discharge Diet: No restrictions May resume sexual activity in: 4-6 weeks Lifting Restrictions: 20 pounds Additional Activity Instructions: Nothing in the vagina for 4-6 weeks. You may return to work/school in 6 weeks. Call your doctor if your incision/area has: Continuous Slow Oozing, Sudden Increased Bleeding, Increased Pain/ Swelling, Increased Redness and Foul Smelling Discharge Call your doctor if you observe: Fever of 101 or Higher and Using more than 1 pad per hour (for 2 hours) Suture Line Care: Avoid Pulling/Pushing and Avoid Pinching/Bending Cleanse incision/area with: Keep Dressing Clean & Dry Please Follow Up With: Nitza Scott MD When: Call to make an appointment for an incision check in 1-2 [phone]. You will need a post check in 6 weeks. Meaningful Use Info Meaningful Use Meaningful Use Diagnoses (Choose all that apply): None applicable Ischemic Stroke Statin Dosing Therapy Reference: STATIN DOSE THERAPY REFERENCE: * Patients > 75 years receive moderate or high dose statin therapy. * Patients 75 years or YOUNGER should receive HIGH intensity statin dose unless contraindicated. You will be required to document reason for non-treatment if statin daily dose does not meet guidelines. HIGH DOSE STATIN THERAPY DAILY Atorvastatin > than or = to 40 mg Rosuvastatin > than or = to 20 mg Amlodipine + Atorvastatin > than or = to 2.5/40 mg Ezetimibe + Simvastatin 10/80 mg Simvastatin 80mg Discharge Plan Admission Admit Date/Time: 03/18/24 08:21 Primary Reason for Your Visit: labor Attending Provider: Poppy Goodrich Primary Care Provider: Kristina He Instructions Patient Instructions: After a Discharge Orders/Prescriptions Prescriptions: New ibuprofen 600 mg Tablet 600 mg PO Q6H 10 Days Qty: 40 0RF Continued 400 mcg tablet,chewable 2 tab PO DAILY famotidine [Heartburn Prevention] 20 mg tablet 20 mg PO DAILY acetaminophen 500 mg tablet 1,000 mg PO Q6H PRN (Reason: pain) Discontinued aspirin 81 mg tablet,delayed release (DR/EC) 81 mg PO DAILY Referrals / Follow Up: Kristina He MD [Primary Care Provider] - Disposition Disposition (needs filled in before D/C Order can be placed): Home, Self Care
--- NOTE | 2025-06-21 12:49 | NURSING ---
Chart reviewed for accuracy of documentation. Operative Record adjusted with decision time for removed on the first entry. Second entry accurately reflects decision time.
== END 2024-03-19 14:55 | disposition home or self-care (01) | DRG 540 ==
LOC: WPOUT 08:29 → WP 08:29
PROVIDERS: Admitting Provider Obstetrics & Gynecology; PCP Pediatrics; Referring Provider Advanced Practice Midwife; Visit Provider Obstetrics & Gynecology
DX: O76 Abnormality in fetal heart rate and rhythm complicating labor and delivery (principal); O99.324 Drug use complicating childbirth; F39 Unspecified mood [affective] disorder; F17.290 Nicotine dependence, other tobacco product, uncomplicated; B95.1 Streptococcus, group B, as the cause of diseases classified elsewhere; Z79.82 Long term (current) use of aspirin; O99.334 Smoking (tobacco) complicating childbirth; O77.0 Labor and delivery complicated by meconium in amniotic fluid; O99.824 Streptococcus B carrier state complicating childbirth; Z37.0 Single live birth; Z3A.39 39 weeks gestation of pregnancy; Z30.017 Encounter for initial prescription of implantable subdermal contraceptive; O99.344 Other mental disorders complicating childbirth; F12.99 Cannabis use, unspecified with unspecified cannabis-induced disorder
CPT/HCPCS: 59025; 59050; 80307; 84112; 85025; 85027; 86780; 86850; 86900; 86901; 88307; 99221; J7120; A4216; G0378; J2405